=== PATIENT | female | born 1965 | race Caucasian/White ===

== ENCOUNTER → 2022-05-02 | Outpatient (CLI) | payer OTHER ==
[~2022-05-02] MED LIST: ASPIR 8181 MG PO; BENADRYL 25MG C25 MG PO; ELIQUIS5 MG PO; HYDROCHLOROTHIA25 MG PO; LEVOTHYROXINE50 MCG PO; MELOXICAM7.5 MG PO; METOPROLOL TART25 MG PO; MUCINEX600 MG PO; PREDNISONE5 MG PO; PRILOSEC OTC20 MG PO; SULFASALAZINE500 MG PO
[2022-05-02 13:57] LABS: RED BLOOD COUNT 5.04 M/UL (4.00-5.10); WHITE BLOOD COUNT 7.1 K/UL (4.5-11.0)
[2022-05-02 14:17] LABS: BUN/CREATININE RATIO 16 (0-10)
== END ==
LOC: LAB 13:19
PROVIDERS: Internal Medicine Interventional Cardiology
DX: I25.10 Atherosclerotic heart disease of native coronary artery without angina pectoris (principal); M19.90 Unspecified osteoarthritis, unspecified site; R94.39 Abnormal result of other cardiovascular function study; M06.9 Rheumatoid arthritis, unspecified; J30.9 Allergic rhinitis, unspecified; J45.909 Unspecified asthma, uncomplicated; K21.9 Gastro-esophageal reflux disease without esophagitis; E03.9 Hypothyroidism, unspecified
CPT/HCPCS: 36415; 80048; 85025; 85610; 85730; 93005

== ENCOUNTER → 2022-05-07 | Outpatient (CLI) | payer OTHER | LOC: CATH 09:44 | DX: I25.118 Atherosclerotic heart disease of native coronary artery with other forms of angina pectoris (principal); I10 Essential (primary) hypertension; I48.91 Unspecified atrial fibrillation | CPT/HCPCS: 99152; 99153; C1769; C1894; J1644; J2250; J2930; J3010; Q9967 ==

== ENCOUNTER 2022-05-09 17:54 | Emergency (ER) | payer OTHER ==
[2022-05-09 18:38] LABS: HEMOGLOBIN 15.4 gm/dl (12.3-15.3); RED BLOOD COUNT 4.98 M/UL (4.00-5.10); WHITE BLOOD COUNT 8.2 K/UL (4.5-11.0)
[2022-05-09 19:07] LABS: BUN/CREATININE RATIO 24 (0-10)
== END 2022-05-09 21:32 | disposition home or self-care (01) ==
LOC: ER1 17:54
PROVIDERS: Emergency Medicine
DX: R53.1 Weakness (principal); E87.6 Hypokalemia; Z86.16 Personal history of COVID-19; I10 Essential (primary) hypertension; M06.9 Rheumatoid arthritis, unspecified; E07.9 Disorder of thyroid, unspecified
CPT/HCPCS: 70450; 71045; 80053; 81001; 82550; 82553; 83735; 84439; 84443; 84484; 85025; 85379; 93005; 99285